=== PATIENT | female | born 1945 | race Caucasian/White ===

== ENCOUNTER → 2017-12-06 12:27 | Outpatient (CLI) | payer MEDICARE, OTHER, SELFPAY ==
--- NOTE | 2017-12-06 12:43 | RAD_ITS ---
STUDY: X-RAY CHEST REASON FOR EXAM: Female, 72 years old. Pre-op TECHNIQUE: Frontal and lateral views of the chest. COMPARISON: None. FINDINGS: The lungs are clear and expanded. Minimal linear scar across the lower right lung. No infiltrates. No effusions. There is no demonstrated pleural abnormality. Normal size heart. Normal mediastinum and smith. Normal visualized pulmonary arteries. Normal visualized aortic arch and descending thoracic aorta. There are diffuse degenerative changes of the visualized thoracic spine. Normal visualized ribs, clavicles, and shoulders. There is no demonstrated abnormality of the visualized soft tissue structures of the upper abdomen. RAD/Chest PA and Lateral IMPRESSION: No acute chest disease. Electronically Signed: Adeel Payne MD at 14:54 EDT , Service support ,
--- NOTE | 2017-12-06 12:53 | EKG12_ITS ---
Test Reason : PREOP Blood Pressure : / mmHG Vent. Rate : 066 BPM Atrial Rate : 066 BPM P-R Int : 188 ms QRS Dur : 076 ms QT Int : 414 ms P-R-T Axes : 043 -27 027 degrees QTc Int : 434 ms Normal sinus rhythm Possible Left atrial enlargement Left ventricular hypertrophy Inferior infarct , age undetermined , cannt be excluded Abnormal ECG Confirmed by PENNIE HEATON, KARTHIK ([id number]), editor city JACOB ROTHMAN ([id number]) on 12/11/2017 3:17:01 PM Referred By: Juan Rothman Confirmed By:KARTHIK CASPER MD
== END ==
PROVIDERS: Visit Provider Orthopaedic Surgery
DX: Z01.810 Encounter for preprocedural cardiovascular examination (principal); Z01.811 Encounter for preprocedural respiratory examination
CPT/HCPCS: 71046; 93005

== ENCOUNTER → 2022-10-17 | Outpatient (CLI) | payer MEDICARE, BC, SELFPAY ==
--- NOTE | 2022-10-17 13:30 | BI_ITS ---
MAMMOGRAPHY - BILATERAL SCREENING REASON FOR EXAM: Female, 77 years old. Routine annual screening examination. PERTINENT HISTORY: Non-contributory. TECHNIQUE: Digital bilateral breast john (3D mammographic acquisition) in the CC and MLO projections. 2-D mediolateral oblique (MLO) and craniocaudad (CC) views of both breasts were obtained. CAD: Full Field Digital Mammography with Computer Added Detection was performed. COMPARISON: No comparison mammograms available at this time. If any prior films become available, an addendum to this report can be generated. FINDINGS: Breast Composition: The breasts are heterogeneously dense, which may obscure small masses. There are no dominant masses or suspicious calcifications. No other significant abnormalities are identified. BI/SCRN MAMM (CAD)W/JOHN BILAT IMPRESSION: Negative screening mammogram. Yearly followup mammogram recommended. (A) ASSESSMENT CATEGORY: BIRADS Category 1: Negative. A letter regarding these results will be sent to the patient by the facility within 30 days. Approximately 10% of breast cancers are not detected by mammography. A normal mammogram should not delay biopsy of a clinically suspicious abnormality. [id number] Electronically Signed: Deric Mtz MD at 14:10 EDT ,
== END | disposition home or self-care (01) ==
LOC: OPBI 13:28
PROVIDERS: PCP Family Medicine Geriatric Medicine; Referring Provider Obstetrics & Gynecology; Visit Provider Obstetrics & Gynecology
DX: Z12.31 Encounter for screening mammogram for malignant neoplasm of breast (principal)
CPT/HCPCS: 77063; 77067

== ENCOUNTER → 2023-06-04 | Outpatient (CLI) | payer MEDICARE, BC, SELFPAY ==
[2023-06-04 17:04] LABS: Absolute Lymphocyte Count 1.62 X10^3/uL (0.83-4.51); Absolute Neutrophil Count 3.3 X10^3/uL (2.0-7.7); Basophil# 0.06 X10^3/uL; Basophil% 1.1 % (0-1); Eosinophil# 0.19 X10^3/uL; Eosinophils% 3.4 % (0-5); Hematocrit 41.1 % (37-47); Hemoglobin 14.1 g/dL (12.0-15.0); Lymphocyte # 1.62 X10^3/ul (0.83-4.51); Lymphocyte % 28.7 % (19-41); Mean Corp Hgb Conc 34.3 g/dL (32-36); Mean Corpuscular Hgb 31.3 pg (27.0-32.0); Mean Corpuscular Volume 91.1 fL (81-99); Mean Platelet Vol. 10.1 fl (6.2-12.0); Monocyte# 0.49 X10^3/uL; Monocyte% 8.7 % (0-10); NRBC Flagged by Analyzer 0 % (0-5); Neutrophil # 3.28 X10^3/uL (2.7-7.7); Neutrophil % 57.9 % (47-70); Platelet Count 192 K/mm3 (150-450); RBC Distribution Width CV 12.6 % (11.6-14.6); Red Blood Count 4.51 M/mm3 (4.2-5.4); White Blood Count 5.7 K/mm3 (4.4-11.0)
[2023-06-04 17:36] LABS: ALB/GLOB Ratio 1.3 RATIO (0.9-2.4); AST(SGOT) 21 U/L (15-37); Alanine Aminotransfer ALT/SGPT 22 U/L (13-56); Albumin, Serum 3.8 g/dL (3.2-5.0); Alkaline Phosphatase 60 U/L (45-117); Anion Gap 4 (5-15); BUN 11 mg/dL (7-18); BUN/Creat Ratio 14.6 RATIO (10-20); Calcium,Total 9.4 mg/dL (8.5-10.1); Chloride 107 mmol/L (98-107); Creatinine, Serum 0.75 mg/dL (0.55-1.02); EST Glomerular Filtration Rate 80 mL/min (>60); Est Glom Filt Rate - Afr Amer 96 mL/min (>60); Glucose 96 mg/dL (74-106); Potassium 3.7 mmol/L (3.5-5.1); Protein, Total 6.8 g/dL (6.4-8.2); Sodium Level 140 mmol/L (136-145); Thyroid Stim Hormone (TSH) 1.67 uIU/mL (0.358-3.74)
[2023-06-04 18:06] LABS: Hepatitis C Antibody Non-Reactive (Nonreactive); Vitamin D,25 Hydroxy 25.7 ng/mL
== END | disposition home or self-care (01) ==
PROVIDERS: PCP Family Medicine Geriatric Medicine; Referring Provider Family Medicine Geriatric Medicine; Visit Provider Family Medicine Geriatric Medicine
DX: E55.9 Vitamin D deficiency, unspecified (principal); R53.83 Other fatigue
CPT/HCPCS: 36415; 80053; 82306; 84443; 85025; 86803

== ENCOUNTER → 2023-09-06 | Outpatient (CLI) | payer MEDICARE, BC, SELFPAY ==
[2023-09-06 12:19] LABS: Absolute Lymphocyte Count 1.72 X10^3/uL (0.83-4.51); Absolute Neutrophil Count 2.4 X10^3/uL (2.0-7.7); Basophil# 0.07 X10^3/uL; Basophil% 1.4 % (0-1); Eosinophil# 0.16 X10^3/uL; Eosinophils% 3.3 % (0-5); Hematocrit 39.1 % (37-47); Hemoglobin 13.5 g/dL (12.0-15.0); Lymphocyte # 1.72 X10^3/ul (0.83-4.51); Lymphocyte % 35.5 % (19-41); Mean Corp Hgb Conc 34.5 g/dL (32-36); Mean Corpuscular Volume 89.9 fL (81-99); Mean Platelet Vol. 10.3 fl (6.2-12.0); Monocyte# 0.41 X10^3/uL; Monocyte% 8.5 % (0-10); NRBC Flagged by Analyzer 0 % (0-5); Neutrophil # 2.44 X10^3/uL (2.7-7.7); Neutrophil % 50.3 % (47-70); Platelet Count 188 K/mm3 (150-450); RBC Distribution Width CV 12.2 % (11.6-14.6); RBC Distribution Width SD 40.4 fl (35.1-43.9); Red Blood Count 4.35 M/mm3 (4.2-5.4); White Blood Count 4.9 K/mm3 (4.4-11.0)
--- OUTSIDE RECORDS SUMMARY | 2023-09-06 12:22 | XMS RPT_ITS | CCD ---
Author Name Unknown Address [id number] [place] [address] Organization [facility] Care Team Providers Care Polymer Chemist Name Role Phone LINA RICHARD DR Unavailable Unavailable LINA IRCHARD DR Unavailable Unavailable LINA RICHARD DR Unavailable Unavailable LINA RICHARD DR Unavailable Unavailable LINA RICHARD DR Unavailable Unavailable LINA RICHARD DR Unavailable Unavailable LINA RICHARD DR Unavailable Unavailable LINA RICHARD DR Unavailable Unavailable LINA RICHARD DR Unavailable Unavailable Unavailable Primary Care Provider Unavailabl e Unavailable Primary Care Provider Unavailabl e Sarah Salazar MD Primary Care Provider Sarah Salazar MD Primary Care Provider [place], Radhika Chi Primary Care Provider [phone] [place], Radhika Chi Primary Care Provider [phone] YUAN, RADHA Attending Unavailable AMERICA, RADHIKA CHI Primary Care Unavailable YUAN, RADHA Referring Unavailable YUAN, RADHA Attending Unavailable AMERICA, RADHIKA CHI Primary Care Unavailable YUAN, RADHA Referring Unavailable YUAN, RADHA Attending Unavailable AMERICA, RADHIKA CHI Primary Care Unavailable YUAN, RADHA Referring Unavailable AMERICA, RADHIKA CHI Primary Care Unavailable YUAN, RADHA Attending Unavailable YUAN, RADHA Referring Unavailable AMERICA, RADHIKA CHI Primary Care Unavailable YUAN, RADHA Attending Unavailable YUAN, RADHA Referring Unavailable AMERICA, RADHIKA CHI Primary Care Unavailable YUAN, RADHA Referring Unavailable YUAN, RADHA Attending Unavailable AMERICA, RADHIKA CHI Primary Care Unavailable YUAN, RADHA Referring Unavailable YUAN, RADHA Attending Unavailable YUAN, RADHA Attending Unavailable AMERICA, RADHIKA CHI Primary Care Unavailable YUAN, RADHA Referring Unavailable YUAN, RADHA Attending Unavailable AMERICA, RADHIKA CHI Primary Care Unavailable YUAN, RADHA Referring Unavailable YUAN, RADHA Attending Unavailable AMERICA, RADHIKA CHI Primary Care Unavailable YUAN, RADHA Referring Unavailable Allergies Allergy Classification Reported Allergen(s) Allergy Type Date of Onset Reaction(s) Facility (2 sources) aspirin; Translations: [ASPIRIN] Drug Allergy 1 [facility] Repository (16 sources) Adhesive agent; Translations: [ADHESIVE] Drug Allergy 8 Other: See Comments [facility] (15 sources) Aspirin Drug Allergy 1 Other: See Comments [facility] (16 sources) Bacitracin; Translations: [BACITRACIN] Drug Allergy 1 Rash, Unknown [facility] (14 sources) bevacizumab; Translations: [BEVACIZUMAB] Drug Allergy 5 Other: See Comments [facility] Work Phone: (14 sources) Seasonal allergy; Translations: [SEASONAL ALLERGIES] Allergy to substance 2 Unknown [facility] Work Phone: Medications Current Medications Medication Drug Class(es) Dates Sig (Normalized) Sig (Original) benoxinate hydrochloride 4 mg/ml / fluorescein sodium 3 mg/ml ophthalmic solution (5 sources) Diagnostic Dye Start: 08-29-2023 End: 08-29-2023 fluorescein-benoxi albert 0.3-0.4 % 1 Drop (FLURESS) Completed/Discontinued Medications Medication Drug Class(es) Dates Sig (Normalized) Sig (Original) acetaminophen with codeine (TYLENOL-CODEINE #3 ORAL) (13 sources) acetaminophen wi th codeine (TYLENOL-CODEINE #3 ORAL) Take by mouth. 0 Active Problems Active Problems Problem Classification Problem Date Documented Date Episodic/Chronic Blindness and vision defects (1 source) Presbyopia; Translations: [Presbyopia] Episodic Cataract (13 sources) Age-related nuclear cataract of right eye; Translations: [Age-related nuclear cataract, right eye] Onset: 01-25-2020 04-23-2022 Chronic Coagulation and hemorrhagic disorders (13 sources) von Willebrand disorder; Translations: [Von Willebrand disease] Onset: 03-20-2011 04-23-2022 Chronic Disorders of lipid metabolism (13 sources) Hyperlipidemia; Translations: [Hyperlipidemia, unspecified] Onset: 11-15-2014 04-23-2022 Chronic Esophageal disorders (13 sources) Gastroesophageal reflux disease without esophagitis; Translations: [Gastro-esophageal reflux disease without esophagitis] Onset: 05-13-2020 04-23-2022 Chronic Medical examination/evaluati on (3 sources) Encounter for other preprocedural examination; Translations: [Encounter for other preprocedural examination] Onset: 01-15-2018 Episodic Osteoarthritis (20 sources) Unilateral primary osteoarthritis, right knee; Translations: [Degenerative joint disease involving multiple joints] Onset: 03-09-2011 04-23-2022 Chronic Other upper respiratory disease (13 sources) Allergic rhinitis; Translations: [Allergic rhinitis, unspecified] Onset: 03-20-2011 04-23-2022 Chronic Retinal detachments; defects; vascular occlusion; and retinopathy (20 sources) Exudative age-related macular degeneration; Translations: [Exudative age-related macular degeneration, bilateral, with active choroidal neovascularization] Onset: 03-20-2011 Chronic Past or Other Problems Problem Classification Problem Date Documented Date Episodic/Chronic Allergic reactions (13 sources) Idiopathic urticaria; Translations: [Idiopathic urticaria] Onset: 11-15-2014 04-23-2022 Episodic Fluid and electrolyte disorders (13 sources) Hypokalemia; Translations: [Hypokalemia] Onset: 09-03-2017 04-23-2022 Episodic Inflammation; infection of eye (except that caused by tuberculosis or sexually transmitteddisease) (13 sources) Acute and subacute iridocyclitis; Translations: [Unspecified acute and subacute iridocyclitis] Onset: 03-09-2011 04-23-2022 Episodic Other and unspecified benign neoplasm (13 sources) Lipoma (clinical); Translations: [Benign lipomatous neoplasm, unspecified] Onset: 11-15-2014 04-23-2022 Episodic Other diseases of kidney and ureters (9 sources) Hydronephrosis; Translations: [Hydronephrosis with renal and ureteral calculous obstruction] Onset: 09-03-2017 04-23-2022 Episodic Other diseases of kidney and ureters (4 sources) Hydronephrosis with renal and ureteral calculous obstruction; Translations: [Hydronephrosis] Onset: 09-03-2017 04-23-2022 Episodic Other diseases of veins and lymphatics (13 sources) Venous insufficiency of leg; Translations: [Venous insufficiency (chronic) (peripheral)] Onset: 05-28-2016 04-23-2022 Episodic Other nervous system disorders (13 sources) Paresthesia; Translations: [Paresthesia of skin] Onset: 04-08-2020 04-23-2022 Episodic Other skin disorders (13 sources) Vesicular eczema; Translations: [Dyshidrosis [pompholyx]] Onset: 11-15-2014 04-23-2022 Episodic Spondylosis; intervertebral disc disorders; other back problems (20 sources) Low back pain; Translations: [Low back pain] Onset: 11-15-2014 04-23-2022 Episodic Results Test Name Value Interpretation Reference Range Facil ity Encounters Encounter Date Encounter Type Care Provider Facility Start: 08-29-2023 End: 08-29-2023 ambulatory [facility] Facility:[facility] Start: 08-29-2023 End: 08-29-2023 Office outpatient visit 15 minutes Radha Frey MD, PhD Work Phone: Ophthalmology Procedures Date Procedure Procedure Detail Performing Clinician Start: 08-29-2023 End: 08-29-2023 Intravitreal njx pharmacologic agt spx Radha Frey MD, PhD Work Phone: Start: 08-29-2023 Computerized ophthal ta imaging retina Rdaha Frey MD, PhD Work Phone: Start: 03-28-2023 End: 03-28-2023 Intravitreal njx pharmacologic agt spx Radha Frey MD, PhD Work Phone: Start: 03-28-2023 Computerized ophthal ta imaging retina Radha Frey MD, PhD Work Phone: Start: 02-21-2023 Intravitreal njx pharmacologic agt spx Radha Frey MD, PhD Work Phone: Start: 02-21-2023 Computerized ophthal ta imaging retina Radha Frey MD, PhD Work Phone: Start: 01-24-2023 End: 01-24-2023 Intravitreal njx pharmacologic agt spx Radha Frey MD, PhD Work Phone: Start: 01-24-2023 Computerized ophthal ta imaging retina Radha Frey MD, PhD Work Phone: Start: 11-22-2022 Intravitreal njx pharmacologic agt spx Radha Frey MD, PhD Work Phone: Start: 11-22-2022 Computerized ophthal ta imaging retina Radha Frey MD, PhD Work Phone: Start: 09-27-2022 End: 09-27-2022 Intravitreal njx pharmacologic agt spx Radha Frey MD, PhD Work Phone: Start: 09-27-2022 Computerized ophthal ta imaging retina Radha Frey MD, PhD Work Phone: Start: 08-23-2022 End: 08-23-2022 Intravitreal njx pharmacologic agt spx Radha Frey MD, PhD Work Phone: Start: 08-23-2022 Computerized ophthal ta imaging retina Radha Frey MD, PhD Work Phone: Start: 07-26-2022 End: 07-26-2022 Intravitreal njx pharmacologic agt spx Radha Frey MD, PhD Work Phone: Start: 07-26-2022 Computerized ophthal ta imaging retina Radha Frey MD, PhD Work Phone: Start: 06-28-2022 End: 06-28-2022 Intravitreal njx pharmacologic agt spx Radha Frey MD, PhD Work Phone: Start: 06-28-2022 Computerized ophthal ta imaging retina Radha Frey MD, PhD Work Phone: Start: 06-07-2022 End: 06-07-2022 Intravitreal njx pharmacologic agt spx Radha Frey MD, PhD Work Phone: Start: 06-07-2022 Computerized ophthal ta imaging retina Radha Frey MD, PhD Work Phone: Start: 05-18-2022 End: 05-18-2022 Intravitreal njx pharmacologic agt spx Radha Frey MD, PhD Work Phone: Start: 05-18-2022 Computerized ophthal ta imaging retina Radha Frey MD, PhD Work Phone: Start: 04-19-2022 End: 04-19-2022 Intravitreal njx pharmacologic agt spx Radha Frey MD, PhD Work Phone: Start: 04-19-2022 Computerized ophthal ta imaging retina Radha Frey MD, PhD Work Phone: Start: 03-08-2022 End: 03-08-2022 Intravitreal njx pharmacologic agt spx Radha Frey MD, PhD Work Phone: Start: 03-08-2022 Computerized ophthal ta imaging retina Radha Frey MD, PhD Work Phone: Plan of Treatment Date Care Activity Detail Author Start: 08-19-2025 LIPID SCREEN LIPID SCREEN [facility] Start: 04-23-2025 DIABETES SCREEN DIABETES SCREEN [facility] Start: 04-23-2025 Diabetes Screening Diabetes Screening [facility] Start: 09-12-2024 End: 02-19-2025 OCT MACULA CIRRUS OU (BOTH EYES) OCT MACULA CIRRUS OU (BOTH EYES) OPHT Imaging Routine Exudative age-related macular degeneration, bilateral, with active choroidal neovascularization (HCC) Expected: 09/12/2024, Expires: 02/19/2025 [facility] Work Phone: Immunizations Immunization Date Immunization Notes Care Provider Fa radha 09-07-2020 COVID-19 original vaccine, age 12+ yr, monovalent (PFIZER-BIONTECH - PURPLE TOP) Mary Hurst OD Work Phone: [facility] Work Phone: 08-17-2020 COVID-19 original vaccine, age 12+ yr, monovalent (PFIZER-BIONTECH - PURPLE TOP) Mary Hurst OD Work Phone: [facility] Work Phone: 01-04-2017 pneumococcal conjuga te vaccine, 13 valent Mary Hurst OD Work Phone: [facility] Work Phone: 06-24-2015 zoster vaccine, live Mary Hurst OD Work Phone: [facility] Work Phone: Payers Date Payer Category Payer Medicare [id number] B 2019 Unknown MARY SIDDIQUI DICARE SUPPLEMENT [id number] 2019-Present [phone] [id number] [place] [address] Indemnity [id number] 2011 Medicare [id number] 2011 Medicare MEDICARE MEDICAR E A AND B [id number] 2011-Present [phone] [place] [address] Medicare [id number] Social History Date Type Detail Facility Start: 03-08-2022 End: 04-23-2022 Tobacco smoking status NHIS Ex-smoker [facility] End: 06-24-2006 History of tobacco use Current smoker [facility] End: 06-24-2006 History of tobacco use Cigarette Smoker [facility] Start: 03-08-2022 End: 04-23-2022 Tobacco use and exposure Smokeless tobacco non-user [facility] Start: 1945 Sex Assigned At Not on file [facility] Start: 02-26-2022 End: 04-23-2022 Exposure to SARS-CoV-2 (event) Not sure [facility] Start: 04-23-2022 End: 10-25-2022 Cigarettes smoked current (pack per day) - Reported 1.5 [facility] Work Phone: Start: 05-10-2022 End: 08-29-2023 Alcohol intake Current drinker of alcohol (finding) [facility] Start: 04-23-2022 [facility] Start: 10-25-2022 End: 12-20-2022 Tobacco use panel [facility] Work Phone: Adult Depression Screening Assessment 0 [facility] Work Phone: Clinical Notes 03-08-2022 to 08-29-2023 Patient Radha Iglesias MD, PhD - 08/29/2023 8:49 AM ESTPatient Radha Iglesias MD, PhD - 03/28/2023 8:09 AM EDTPatient Radha Iglesias MD, PhD - 02/21/2023 8:03 AM EDT Note Date & Type Note Facility 08-29-2023 Note HNO ID: [id number] Author: RADHA FREY MD, PhD Service: ? Author Type: Physician Type: Progress Notes Filed: 08/29/2023 09:18 Note Text: Patient has been receiving intravitreal injections for AMd both eyes for ~ 10 years Was well controlled on Eylea both eyes until recently left eye required more frequent administration. 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 I have seen and examined this patient. I have discussed the case and the management of this patient's care with the Resident/Fellow, if applicable. I also have reviewed and agree with the assessment and plan as stated above and agree with all of its relevant components. Radha Frey MD [facility] 08-29-2023 Instructions Radha Frey MD, PhD - 08/29/2023 9:18 AM EST Post Injection Patient Information You had eye injection(s) today. These are your after injection instructions. Today: Preservative free artificial tears 1 drop every hour while awake as needed Tomorrow: Preservative free artificial tears 1 drop every 2 hours while awake as needed Care instructions after eye injections: Do not rub or touch your eye other than dabbing lightly with a tissue An hffo-omy-ifbptou pain reliever (i.e. Tylenol) can be used for mild soreness Use artificial tears/lubricating drops once an hour as needed for comfort (chill the tears in the refrigerator for more comfort). If you are using the tears more than 4 times a day they need to be the preservative free kind Warm or cool compresses are okay It is okay to shower and wash your face. No swimming pools or saunas for 24 hours COMMON symptoms after successful eye injections: Mild to moderate pain or irritation beginning the day of the injection. This should begin to improve the following day. Eyelash in the eye or emperatriz/gritty sensation Tearing Mild floaters or bubbles in your vision - usually resolves after 1-2 days Bloody tears for 1-2 days after treatment Eye Redness Also known as subconjunctival hemorrhage This bruise can cover the entire white part of the eye and may last a few weeks CONCERNING symptoms after eye injections: Severe, constant pain Worsening pain after the first day Decreased vision Severe, constant floaters Curtain or veil in your vision New eye redness that was not there after the injection and covers the whole eye Please call the office immediately for any of the above listed concerning symptoms or with any other questions. If it is after hours please call [phone] which will give instructions on how to reach the eye doctor retail loss prevention specialist documented in this encounter [facility] 08-29-2023 History of Present illness Narrative Patient has been receiving intravitreal injections for AMd both eyes for ~ 10 years Was well controlled on Eylea both eyes until recently left eye required more frequent administration. 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 I have seen and examined this patient. I have discussed the case and the management of this patient's care with the Resident/Fellow, if applicable. I also have reviewed and agree with the assessment and plan as stated above and agree with all of its relevant components. Radha Frey MD documented in this encounter [facility] 05-30-2023 Note HNO ID: [id number] Author: Radha Frey MD, PhD Service: ? Author Type: Physician Type: Progress Notes Filed: 05/30/2023 8:45 AM Note Text: Patient has been receiving intravitreal injections for AMd both eyes for ~ 10 years Was well controlled on Eylea both eyes until recently left eye required more frequent administration. 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 Posterior chamber intraocular lens (PCIOL) both eyes with mild posterior capsular opacity (PCO) both eyes Plan: Right eye s/p vabysmo, fluid returns at 8 wks Left eye tolerates up to 5 wks S/p vabysmo both eyes 4 weeks ago with no fluid right eye, IRF OS Vabysmo today both eyes Full exam in September Patient is not interested in RGX Has appointment 1st week in Jun in [place] with local retina Leaving mid may to jul Has August 28 appointment for when she returns I have confirmed and edited as necessary the relevant ophthalmic history, ROS, and the neuro exam findings as obtained by others. I have seen and examined this patient. I have discussed the case and the management of this patient's care with the Resident/Fellow, if applicable. I also have reviewed and agree with the assessment and plan as stated above and agree with all of its relevant components. Radha Frey MD [facility] 04-25-2023 Note HNO ID: [id number] Author: Radha Frey MD, PhD Service: ? Author Type: Physician Type: Progress Notes Filed: 04/25/2023 8:42 AM Note Text: Patient has been receiving intravitreal injections for AMd both eyes for ~ 10 years Was well controlled on Eylea both eyes until recently left eye required more frequent administration. 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 Posterior chamber intraocular lens (PCIOL) both eyes with mild posterior capsular opacity (PCO) both eyes Plan: Right eye s/p vabysmo, fluid returns at 8 wks Left eye s/p vabysmo 5 wks with persistent fluid - but stable S/p vabysmo both eyes 4 weeks ago with no fluid right eye Return in 4-5 weeks for sti Full exam in September Schedule appointments to May Patient is not interested in RGX 05/30/23 next appointment scheduled here Has appointment 1st week in Jun in [place] with local retina Leaving mid may to jul Next visit make appointment for mid August I have confirmed and edited as necessary the relevant ophthalmic history, ROS, and the neuro exam findings as obtained by others. I have seen and examined this patient. I have discussed the case and the management of this patient's care with the Resident/Fellow, if applicable. I also have reviewed and agree with the assessment and plan as stated above and agree with all of its relevant components. Radha Frey MD [facility] 03-28-2023 Note HNO ID: [id number] Author: Radha Frey MD, PhD Service: ? Author Type: Physician Type: Progress Notes Filed: 03/28/2023 8:23 AM Note Text: Patient has been receiving intravitreal injections for AMd both eyes for ~ 10 years Was well controlled on Eylea both eyes until recently left eye required more frequent administration. 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 Posterior chamber intraocular lens (PCIOL) both eyes with mild posterior capsular opacity (PCO) both eyes Plan: Right eye s/p vabysmo, fluid returns at 8 wks Left eye s/p vabysmo 5 wks with persistent fluid - but stable S/p vabysmo right eye 9 weeks ago - with worse subretinal fluid and drop in vision S/p vabysmo left eye 5 weeks ago - no fluid Return in 4-5 weeks for sti Full exam in September Schedule appointments to Dec Patient is not interested in RGX Leaving mid may to mid jul, will see retina doc there I have confirmed and edited as necessary the relevant ophthalmic history, ROS, and the neuro exam findings as obtained by others. I have seen and examined this patient. I have discussed the case and the management of this patient's care with the Resident/Fellow, if applicable. I also have reviewed and agree with the assessment and plan as stated above and agree with all of its relevant components. Radha Frey MD [facility] 03-28-2023 Instructions Radha Frey MD, PhD - 03/28/2023 8:22 AM EDT Post Injection Patient Information You had eye injection(s) today. These are your after injection instructions. Today: Preservative free artificial tears 1 drop every hour while awake as needed Tomorrow: Preservative free artificial tears 1 drop every 2 hours while awake as needed Care instructions after eye injections: Do not rub or touch your eye other than dabbing lightly with a tissue An feeo-fls-lunnted pain reliever (i.e. Tylenol) can be used for mild soreness Use artificial tears/lubricating drops once an hour as needed for comfort (chill the tears in the refrigerator for more comfort). If you are using the tears more than 4 times a day they need to be the preservative free kind Warm or cool compresses are okay It is okay to shower and wash your face. No swimming pools or saunas for 24 hours COMMON symptoms after successful eye injections: Mild to moderate pain or irritation beginning the day of the injection. This should begin to improve the following day. Eyelash in the eye or emperatriz/gritty sensation Tearing Mild floaters or bubbles in your vision - usually resolves after 1-2 days Bloody tears for 1-2 days after treatment Eye Redness Also known as subconjunctival hemorrhage This bruise can cover the entire white part of the eye and may last a few weeks CONCERNING symptoms after eye injections: Severe, constant pain Worsening pain after the first day Decreased vision Severe, constant floaters Curtain or veil in your vision New eye redness that was not there after the injection and covers the whole eye Please call the office immediately for any of the above listed concerning symptoms or with any other questions. If it is after hours please call [phone] which will give instructions on how to reach the eye doctor retail loss prevention specialist documented in this encounter [facility] 03-28-2023 History of Present illness Narrative Patient has been receiving intravitreal injections for AMd both eyes for ~ 10 years Was well controlled on Eylea both eyes until recently left eye required more frequent administration. 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 Posterior chamber intraocular lens (PCIOL) both eyes with mild posterior capsular opacity (PCO) both eyes Plan: Right eye s/p vabysmo, fluid returns at 8 wks Left eye s/p vabysmo 5 wks with persistent fluid - but stable S/p vabysmo right eye 9 weeks ago - with worse subretinal fluid and drop in vision S/p vabysmo left eye 5 weeks ago - no fluid Return in 4-5 weeks for sti Full exam in September Schedule appointments to Dec Patient is not interested in RGX Leaving mid may to mid jul, will see retina doc there I have confirmed and edited as necessary the relevant ophthalmic history, ROS, and the neuro exam findings as obtained by others. I have seen and examined this patient. I have discussed the case and the management of this patient's care with the Resident/Fellow, if applicable. I also have reviewed and agree with the assessment and plan as stated above and agree with all of its relevant components. Radha Frey MD documented in this encounter [facility] 02-21-2023 Note HNO ID: [id number] Author: Radha Frey MD, PhD Service: ? Author Type: Physician Type: Progress Notes Filed: 02/21/2023 8:15 AM Note Text: Patient has been receiving intravitreal injections for AMd both eyes for ~ 10 years Was well controlled on Eylea both eyes until recently left eye required more frequent administration. 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 Posterior chamber intraocular lens (PCIOL) both eyes with mild posterior capsular opacity (PCO) both eyes Plan: Right eye s/p vabysmo, fluid returns at 8 wks Left eye s/p vabysmo 4 wks with persistent fluid S/p vabysmo both eyes 4 weeks with no fluid right eye and IRF OS Rec vabysmo OS Return in 4-5 weeks for full exam Schedule appointments to Dec Patient is not interested in RGX Leaving mid may to mid jul, will see retina doc there I have confirmed and edited as necessary the relevant ophthalmic history, ROS, and the neuro exam findings as obtained by others. I have seen and examined this patient. I have discussed the case and the management of this patient's care with the Resident/Fellow, if applicable. I also have reviewed and agree with the assessment and plan as stated above and agree with all of its relevant components. Radha Frey MD [facility] 02-21-2023 Instructions Radha Frey MD, PhD - 02/21/2023 8:15 AM EDT Post Injection Patient Information You had eye injection(s) today. These are your after injection instructions. Today: Preservative free artificial tears 1 drop every hour while awake as needed Tomorrow: Preservative free artificial tears 1 drop every 2 hours while awake as needed Care instructions after eye injections: Do not rub or touch your eye other than dabbing lightly with a tissue An bujn-cmr-jgalecx pain reliever (i.e. Tylenol) can be used for mild soreness Use artificial tears/lubricating drops once an hour as needed for comfort (chill the tears in the refrigerator for more comfort). If you are using the tears more than 4 times a day they need to be the preservative free kind Warm or cool compresses are okay It is okay to shower and wash your face. No swimming pools or saunas for 24 hours COMMON symptoms after successful eye injections: Mild to moderate pain or irritation beginning the day of the injection. This should begin to improve the following day. Eyelash in the eye or emperatriz/gritty sensation Tearing Mild floaters or bubbles in your vision - usually resolves after 1-2 days Bloody tears for 1-2 days after treatment Eye Redness Also known as subconjunctival hemorrhage This bruise can cover the entire white part of the eye and may last a few weeks CONCERNING symptoms after eye injections: Severe, constant pain Worsening pain after the first day Decreased vision Severe, constant floaters Curtain or veil in your vision New eye redness that was not there after the injection and covers the whole eye Please call the office immediately for any of the above listed concerning symptoms or with any other questions. If it is after hours please call [phone] which will give instructions on how to reach the eye doctor retail loss prevention specialist documented in this encounter [facility] 02-21-2023 History of Present illness Narrative Patient has been receiving intravitreal injections for AMd both eyes for ~ 10 years Was well controlled on Eylea both eyes until recently left eye required more frequent administration. 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 Posterior chamber intraocular lens (PCIOL) both eyes with mild posterior capsular opacity (PCO) both eyes Plan: Right eye s/p vabysmo, fluid returns at 8 wks Left eye s/p vabysmo 4 wks with persistent fluid S/p vabysmo both eyes 4 weeks with no fluid right eye and IRF OS Rec vabysmo OS Return in 4-5 weeks for full exam Schedule appointments to Dec Patient is not interested in RGX Leaving mid may to mid jul, will see retina doc there I have confirmed and edited as necessary the relevant ophthalmic history, ROS, and the neuro exam findings as obtained by others. I have seen and examined this patient. I have discussed the case and the management of this patient's care with the Resident/Fellow, if applicable. I also have reviewed and agree with the assessment and plan as stated above and agree with all of its relevant components. Radha Frey MD documented in this encounter [facility] 01-24-2023 Note HNO ID: [id number] Author: Radha Frey MD, PhD Service: ? Author Type: Physician Type: Progress Notes Filed: 01/24/2023 8:23 AM Note Text: Patient has been receiving intravitreal injections for AMd both eyes for ~ 10 years Was well controlled on Eylea both eyes until recently left eye required more frequent administration. 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 Posterior chamber intraocular lens (PCIOL) both eyes with mild posterior capsular opacity (PCO) both eyes Plan: Right eye s/p vabysmo 8 wks with increased subretinal fluid Left eye s/p vabysmo 4 wks with increased IRF Rec vabysmo both eyes today Return in 4-5 weeks for vabysmo likely left eye Full exam in February Patient is not interested in RGX I have confirmed and edited as necessary the relevant ophthalmic history, ROS, and the neuro exam findings as obtained by others. I have seen and examined this patient. I have discussed the case and the management of this patient's care with the Resident/Fellow, if applicable. I also have reviewed and agree with the assessment and plan as stated above and agree with all of its relevant components. Radha Frey MD [facility] 01-24-2023 Instructions Radha Frey MD, PhD - 01/24/2023 8:21 AM EDT Post Injection Patient Information You had eye injection(s) today. These are your after injection instructions. Today: Preservative free artificial tears 1 drop every hour while awake as needed Tomorrow: Preservative free artificial tears 1 drop every 2 hours while awake as needed Care instructions after eye injections: Do not rub or touch your eye other than dabbing lightly with a tissue An fyyv-yun-rrvcege pain reliever (i.e. Tylenol) can be used for mild soreness Use artificial tears/lubricating drops once an hour as needed for comfort (chill the tears in the refrigerator for more comfort). If you are using the tears more than 4 times a day they need to be the preservative free kind Warm or cool compresses are okay It is okay to shower and wash your face. No swimming pools or saunas for 24 hours COMMON symptoms after successful eye injections: Mild to moderate pain or irritation beginning the day of the injection. This should begin to improve the following day. Eyelash in the eye or emperatriz/gritty sensation Tearing Mild floaters or bubbles in your vision - usually resolves after 1-2 days Bloody tears for 1-2 days after treatment Eye Redness Also known as subconjunctival hemorrhage This bruise can cover the entire white part of the eye and may last a few weeks CONCERNING symptoms after eye injections: Severe, constant pain Worsening pain after the first day Decreased vision Severe, constant floaters Curtain or veil in your vision New eye redness that was not there after the injection and covers the whole eye Please call the office immediately for any of the above listed concerning symptoms or with any other questions. If it is after hours please call [phone] which will give instructions on how to reach the eye doctor retail loss prevention specialist documented in this encounter [facility] 01-24-2023 History of Present illness Narrative Patient has been receiving intravitreal injections for AMd both eyes for ~ 10 years Was well controlled on Eylea both eyes until recently left eye required more frequent administration. 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 Posterior chamber intraocular lens (PCIOL) both eyes with mild posterior capsular opacity (PCO) both eyes Plan: Right eye s/p vabysmo 8 wks with increased subretinal fluid Left eye s/p vabysmo 4 wks with increased IRF Rec vabysmo both eyes today Return in 4-5 weeks for vabysmo likely left eye Full exam in February Patient is not interested in RGX I have confirmed and edited as necessary the relevant ophthalmic history, ROS, and the neuro exam findings as obtained by others. I have seen and examined this patient. I have discussed the case and the management of this patient's care with the Resident/Fellow, if applicable. I also have reviewed and agree with the assessment and plan as stated above and agree with all of its relevant components. Radha Frey MD documented in this encounter [facility] 12-20-2022 Note HNO ID: [id number] Author: Radha Frey MD, PhD Service: ? Author Type: Physician Type: Progress Notes Filed: 12/20/2022 8:22 AM Note Text: Patient has been receiving intravitreal injections for AMd both eyes for ~ 10 years Was well controlled on Eylea both eyes until recently left eye required more frequent administration. 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 Posterior chamber intraocular lens (PCIOL) both eyes with mild posterior capsular opacity (PCO) both eyes Plan: Right eye s/p vabysmo 8 wks with increased subretinal fluid Left eye s/p vabysmo 4 wks with increased IRF Rec vabysmo both eyes today Return in 4-5 weeks for vabysmo likely left eye Full exam in February Patient is not interested in RGX I have confirmed and edited as necessary the relevant ophthalmic history, ROS, and the neuro exam findings as obtained by others. I have seen and examined this patient. I have discussed the case and the management of this patient's care with the Resident/Fellow, if applicable. I also have reviewed and agree with the assessment and plan as stated above and agree with all of its relevant components. Radha Frey MD [facility] 11-22-2022 Note HNO ID: [id number] Author: Radha Frey MD, PhD Service: ? Author Type: Physician Type: Progress Notes Filed: 11/22/2022 8:24 AM Note Text: Patient has been receiving intravitreal injections for AMd both eyes for ~ 10 years Was well controlled on Eylea both eyes until recently left eye required more frequent administration. 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 Posterior chamber intraocular lens (PCIOL) both eyes with mild posterior capsular opacity (PCO) both eyes Plan: Vabysmo both eyes 4 weeks ago with no fluid right eye, IRF OS Rec vabysmo left eye, right eye is 20/20 and dry Return in 4-5 weeks for vabysmo possibly both eyes sti Full exam in February Patient is not interested in RGX I have confirmed and edited as necessary the relevant ophthalmic history, ROS, and the neuro exam findings as obtained by others. I have seen and examined this patient. I have discussed the case and the management of this patient's care with the Resident/Fellow, if applicable. I also have reviewed and agree with the assessment and plan as stated above and agree with all of its relevant components. Radha Frey MD [facility] 11-22-2022 Instructions Radha Frey MD, PhD - 11/22/2022 8:23 AM EDT Post Injection Patient Information You had eye injection(s) today. These are your after injection instructions. Today: Preservative free artificial tears 1 drop every hour while awake as needed Tomorrow: Preservative free artificial tears 1 drop every 2 hours while awake as needed Care instructions after eye injections: Do not rub or touch your eye other than dabbing lightly with a tissue An suyp-noy-mulekld pain reliever (i.e. Tylenol) can be used for mild soreness Use artificial tears/lubricating drops once an hour as needed for comfort (chill the tears in the refrigerator for more comfort). If you are using the tears more than 4 times a day they need to be the preservative free kind Warm or cool compresses are okay It is okay to shower and wash your face. No swimming pools or saunas for 24 hours COMMON symptoms after successful eye injections: Mild to moderate pain or irritation beginning the day of the injection. This should begin to improve the following day. Eyelash in the eye or emperatriz/gritty sensation Tearing Mild floaters or bubbles in your vision - usually resolves after 1-2 days Bloody tears for 1-2 days after treatment Eye Redness Also known as subconjunctival hemorrhage This bruise can cover the entire white part of the eye and may last a few weeks CONCERNING symptoms after eye injections: Severe, constant pain Worsening pain after the first day Decreased vision Severe, constant floaters Curtain or veil in your vision New eye redness that was not there after the injection and covers the whole eye Please call the office immediately for any of the above listed concerning symptoms or with any other questions. If it is after hours please call [phone] which will give instructions on how to reach the eye doctor retail loss prevention specialist documented in this encounter [facility] 11-22-2022 History of Present illness Narrative Patient has been receiving intravitreal injections for AMd both eyes for ~ 10 years Was well controlled on Eylea both eyes until recently left eye required more frequent administration. 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 Posterior chamber intraocular lens (PCIOL) both eyes with mild posterior capsular opacity (PCO) both eyes Plan: Vabysmo both eyes 4 weeks ago with no fluid right eye, IRF OS Rec vabysmo left eye, right eye is 20/20 and dry Return in 4-5 weeks for vabysmo possibly both eyes sti Full exam in February Patient is not interested in RGX I have confirmed and edited as necessary the relevant ophthalmic history, ROS, and the neuro exam findings as obtained by others. I have seen and examined this patient. I have discussed the case and the management of this patient's care with the Resident/Fellow, if applicable. I also have reviewed and agree with the assessment and plan as stated above and agree with all of its relevant components. Radha Frey MD documented in this encounter [facility] 10-25-2022 Note HNO ID: [id number] Author: Radha Frey MD, PhD Service: ? Author Type: Physician Type: Progress Notes Filed: 10/25/2022 8:20 AM Note Text: Patient has been receiving intravitreal injections for AMd both eyes for ~ 10 years Was well controlled on Eylea both eyes until recently left eye required more frequent administration. 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 Posterior chamber intraocular lens (PCIOL) both eyes with mild posterior capsular opacity (PCO) both eyes Plan: Vabysmo both eyes 4 weeks ago with improved IRF OU Rec vabysmo OU Return in 4-5 weeks for vabysmo both eyes sti Full exam in February Patient is not interested in RGX I have confirmed and edited as necessary the relevant ophthalmic history, ROS, and the neuro exam findings as obtained by others. I have seen and examined this patient. I have discussed the case and the management of this patient's care with the Resident/Fellow, if applicable. I also have reviewed and agree with the assessment and plan as stated above and agree with all of its relevant components. Radha Frey MD [facility] 09-27-2022 Note HNO ID: [id number] Author: Radha Frey MD, PhD Service: ? Author Type: Physician Type: Progress Notes Filed: 09/27/2022 8:25 AM Note Text: Patient has been receiving intravitreal injections for AMd both eyes for ~ 10 years Was well controlled on Eylea both eyes until recently left eye required more frequent administration. 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 Posterior chamber intraocular lens (PCIOL) both eyes with mild posterior capsular opacity (PCO) both eyes Plan: Vabysmo both eyes 5 weeks ago with trace fluid right eye, stable IRF left eye Rec vabysmo OU Return in 4-5 weeks for vabysmo both eyes sti Full exam in February Discussed RGX [facility], will give consent (for atmosphere) Patient is not interested I have confirmed and edited as necessary the relevant ophthalmic history, ROS, and the neuro exam findings as obtained by others. I have seen and examined this patient. I have discussed the case and the management of this patient's care with the Resident/Fellow, if applicable. I also have reviewed and agree with the assessment and plan as stated above and agree with all of its relevant components. Radha Frey MD [facility] 09-27-2022 Instructions Radha Frey MD, PhD - 09/27/2022 8:25 AM EDT Post Injection Patient Information You had eye injection(s) today. These are your after injection instructions. Today: Preservative free artificial tears 1 drop every hour while awake as needed Tomorrow: Preservative free artificial tears 1 drop every 2 hours while awake as needed Care instructions after eye injections: Do not rub or touch your eye other than dabbing lightly with a tissue An jbca-hrt-wfnzheq pain reliever (i.e. Tylenol) can be used for mild soreness Use artificial tears/lubricating drops once an hour as needed for comfort (chill the tears in the refrigerator for more comfort). If you are using the tears more than 4 times a day they need to be the preservative free kind Warm or cool compresses are okay It is okay to shower and wash your face. No swimming pools or saunas for 24 hours COMMON symptoms after successful eye injections: Mild to moderate pain or irritation beginning the day of the injection. This should begin to improve the following day. Eyelash in the eye or emperatriz/gritty sensation Tearing Mild floaters or bubbles in your vision - usually resolves after 1-2 days Bloody tears for 1-2 days after treatment Eye Redness Also known as subconjunctival hemorrhage This bruise can cover the entire white part of the eye and may last a few weeks CONCERNING symptoms after eye injections: Severe, constant pain Worsening pain after the first day Decreased vision Severe, constant floaters Curtain or veil in your vision New eye redness that was not there after the injection and covers the whole eye Please call the office immediately for any of the above listed concerning symptoms or with any other questions. If it is after hours please call [phone] which will give instructions on how to reach the eye doctor retail loss prevention specialist documented in this encounter [facility] 09-27-2022 History of Present illness Narrative Patient has been receiving intravitreal injections for AMd both eyes for ~ 10 years Was well controlled on Eylea both eyes until recently left eye required more frequent administration. 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 Posterior chamber intraocular lens (PCIOL) both eyes with mild posterior capsular opacity (PCO) both eyes Plan: Vabysmo both eyes 5 weeks ago with trace fluid right eye, stable IRF left eye Rec vabysmo OU Return in 4-5 weeks for vabysmo both eyes sti Full exam in February Discussed RGX [facility], will give consent (for atmosphere) Patient is not interested I have confirmed and edited as necessary the relevant ophthalmic history, ROS, and the neuro exam findings as obtained by others. I have seen and examined this patient. I have discussed the case and the management of this patient's care with the Resident/Fellow, if applicable. I also have reviewed and agree with the assessment and plan as stated above and agree with all of its relevant components. Radha Frey MD documented in this encounter [facility] 09-12-2022 Miscellaneous Notes IRB: [id number] Title: [facility] A Randomized, Partially Masked, Controlled, Phase 3 Clinical Study to Evaluate the Efficacy and Safety of [id number] Gene Therapy in Participants with nAMD. Spoke with patient at the request of Dr. Frey on 12 SEP 2022 A brief overview of the above trial was provided to the patient including primary goals, risks/side effects, and treatment plan. Patient interested in study and would like ICF mailed to home when it is available. Patient has concerns regarding allergy to bacitracin for after eye surgery. 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 Concerns will be discussed with Dr. Frey and Mary Kate (PI) to determine if patient would be eligible. Ashia Barnes- Research Coordinator 12 SEP 2022 Ashia Barnes- Research 12 SEP 2022 documented in this encounter [facility] 08-23-2022 Instructions Radha Frey MD, PhD - 08/23/2022 10:03 AM EST Post Injection Patient Information You had eye injection(s) today. These are your after injection instructions. Today: Preservative free artificial tears 1 drop every hour while awake as needed Tomorrow: Preservative free artificial tears 1 drop every 2 hours while awake as needed Care instructions after eye injections: Do not rub or touch your eye other than dabbing lightly with a tissue An xbtt-ckk-rgmhnwg pain reliever (i.e. Tylenol) can be used for mild soreness Use artificial tears/lubricating drops once an hour as needed for comfort (chill the tears in the refrigerator for more comfort). If you are using the tears more than 4 times a day they need to be the preservative free kind Warm or cool compresses are okay It is okay to shower and wash your face. No swimming pools or saunas for 24 hours COMMON symptoms after successful eye injections: Mild to moderate pain or irritation beginning the day of the injection. This should begin to improve the following day. Eyelash in the eye or emperatriz/gritty sensation Tearing Mild floaters or bubbles in your vision - usually resolves after 1-2 days Bloody tears for 1-2 days after treatment Eye Redness Also known as subconjunctival hemorrhage This bruise can cover the entire white part of the eye and may last a few weeks CONCERNING symptoms after eye injections: Severe, constant pain Worsening pain after the first day Decreased vision Severe, constant floaters Curtain or veil in your vision New eye redness that was not there after the injection and covers the whole eye Please call the office immediately for any of the above listed concerning symptoms or with any other questions. If it is after hours please call [phone] which will give instructions on how to reach the eye doctor retail loss prevention specialist documented in this encounter [facility] 08-23-2022 History of Present illness Narrative Patient has been receiving intravitreal injections for AMd both eyes for ~ 10 years Was well controlled on Eylea both eyes until recently left eye required more frequent administration. 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 I have seen and examined this patient. I have discussed the case and the management of this patient's care with the Resident/Fellow, if applicable. I also have reviewed and agree with the assessment and plan as stated above and agree with all of its relevant components. Radha Frey MD documented in this encounter [facility] 07-26-2022 Instructions Radha Frey MD, PhD - 07/26/2022 8:20 AM EST Post-Injection Patient Information You had an injection into the eye today. Tearing and some redness are common after an eye injection. If the eye feels irritated, try to keep it closed; some patients find that a mild pain medicine such as acetaminophen helps. If tearing or pain persists the next day, please call. The redness may take some days to a week to resolve. If you notice increasing pain, redness or blurred vision, please call the office. Loss of central or peripheral vision should prompt a call to us. Please call if you have any questions or concerns. For Questions or an Appointment, please call: [phone] [email or web address]. documented in this encounter [facility] 07-26-2022 History of Present illness Narrative Patient has been receiving intravitreal injections for AMd both eyes for ~ 10 years Was well controlled on Eylea both eyes until recently left eye required more frequent administration. 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 I have seen and examined this patient. I have discussed the case and the management of this patient's care with the Resident/Fellow, if applicable. I also have reviewed and agree with the assessment and plan as stated above and agree with all of its relevant components. Radha Frey MD documented in this encounter [facility] 06-28-2022 Instructions Radha Frey MD, PhD - 06/28/2022 9:08 AM EST Post-Injection Patient Information You had an injection into the eye today. Tearing and some redness are common after an eye injection. If the eye feels irritated, try to keep it closed; some patients find that a mild pain medicine such as acetaminophen helps. If tearing or pain persists the next day, please call. The redness may take some days to a week to resolve. If you notice increasing pain, redness or blurred vision, please call the office. Loss of central or peripheral vision should prompt a call to us. Please call if you have any questions or concerns. For Questions or an Appointment, please call: [phone] Visit us online at [email or web address]. documented in this encounter [facility] 06-28-2022 History of Present illness Narrative Patient has been receiving intravitreal injections for AMd both eyes for ~ 10 years Was well controlled on Eylea both eyes until recently left eye required more frequent administration. 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 I have seen and examined this patient. I have discussed the case and the management of this patient's care with the Resident/Fellow, if applicable. I also have reviewed and agree with the assessment and plan as stated above and agree with all of its relevant components. Radha Frey MD documented in this encounter [facility] 06-07-2022 Instructions Radha Frey MD, PhD - 06/07/2022 9:49 AM EST Post-Injection Patient Information You had an injection into the eye today. Tearing and some redness are common after an eye injection. If the eye feels irritated, try to keep it closed; some patients find that a mild pain medicine such as acetaminophen helps. If tearing or pain persists the next day, please call. The redness may take some days to a week to resolve. If you notice increasing pain, redness or blurred vision, please call the office. Loss of central or peripheral vision should prompt a call to us. Please call if you have any questions or concerns. For Questions or an Appointment, please call: [phone] Visit us online at [email or web address]. documented in this encounter [facility] 06-07-2022 History of Present illness Narrative Patient has been receiving intravitreal injections for AMd both eyes for ~ 10 years Was well controlled on Eylea both eyes until recently left eye required more frequent administration. 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 I have seen and examined this patient. I have discussed the case and the management of this patient's care with the Resident/Fellow, if applicable. I also have reviewed and agree with the assessment and plan as stated above and agree with all of its relevant components. Radha Frey MD documented in this encounter [facility] 05-18-2022 Instructions Radha Frey MD, PhD - 05/18/2022 8:51 AM EST Post-Injection Patient Information You had an injection into the eye today. Tearing and some redness are common after an eye injection. If the eye feels irritated, try to keep it closed; some patients find that a mild pain medicine such as acetaminophen helps. If tearing or pain persists the next day, please call. The redness may take some days to a week to resolve. If you notice increasing pain, redness or blurred vision, please call the office. Loss of central or peripheral vision should prompt a call to us. Please call if you have any questions or concerns. For Questions or an Appointment, please call: [phone] Visit us online at [email or web address]. documented in this encounter [facility] 05-18-2022 History of Present illness Narrative Patient has been receiving intravitreal injections for AMd both eyes for ~ 10 years Was well controlled on Eylea both eyes until recently left eye required more frequent administration. 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 I have seen and examined this patient. I have discussed the case and the management of this patient's care with the Resident/Fellow, if applicable. I also have reviewed and agree with the assessment and plan as stated above and agree with all of its relevant components. Radha Frey MD documented in this encounter [facility] 05-10-2022 Miscellaneous Notes Addended by: MARY HURST on: 05/10/2022 01:20 PM Modules accepted: Orders documented in this encounter [facility] 05-10-2022 History of Present illness Narrative 1. Exudative age-related macular degeneration, bilateral, with active choroidal neovascularization (HCC) Continue follow-up with Dr. Frey for injections in both eyes 2. Presbyopia Continue with OTC readers for now OK to try Lumify for mild hypermia Follow-up in 6 months to recheck refraction Mary Hurst, OD May 10, 2022 1:18 PM documented in this encounter [facility] 04-19-2022 Instructions Radha Frey MD, PhD - 04/19/2022 11:02 AM EDT Post-Injection Patient Information You had an injection into the eye today. Tearing and some redness are common after an eye injection. If the eye feels irritated, try to keep it closed; some patients find that a mild pain medicine such as acetaminophen helps. If tearing or pain persists the next day, please call. The redness may take some days to a week to resolve. If you notice increasing pain, redness or blurred vision, please call the office. Loss of central or peripheral vision should prompt a call to us. Please call if you have any questions or concerns. For Questions or an Appointment, please call: [phone] Visit us online at [email or web address]. documented in this encounter [facility] 04-19-2022 History of Present illness Narrative Patient has been receiving intravitreal injections for AMd both eyes for ~ 10 years Was well controlled on Eylea both eyes until recently left eye required more frequent administration. 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 I have seen and examined this patient. I have discussed the case and the management of this patient's care with the Resident/Fellow, if applicable. I also have reviewed and agree with the assessment and plan as stated above and agree with all of its relevant components. Radha Frey MD documented in this encounter [facility] 03-08-2022 Miscellaneous Notes Addended by: RADHA FREY on: 03/08/2022 11:21 AM Modules accepted: Orders documented in this encounter [facility] 03-08-2022 Instructions Radha Frey MD, PhD - 03/08/2022 9:04 AM EDT Post-Injection Patient Information You had an injection into the eye today. Tearing and some redness are common after an eye injection. If the eye feels irritated, try to keep it closed; some patients find that a mild pain medicine such as acetaminophen helps. If tearing or pain persists the next day, please call. The redness may take some days to a week to resolve. If you notice increasing pain, redness or blurred vision, please call the office. Loss of central or peripheral vision should prompt a call to us. Please call if you have any questions or concerns. For Questions or an Appointment, please call: [phone] Visit us online at [email or web address]. documented in this encounter [facility] 03-08-2022 History of Present illness Narrative Patient has been receiving intravitreal injections for AMd both eyes for ~ 10 years Was well controlled on Eylea both eyes until recently left eye required more frequent administration. 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 I have seen and examined this patient. I have discussed the case and the management of this patient's care with the Resident/Fellow, if applicable. I also have reviewed and agree with the assessment and plan as stated above and agree with all of its relevant components. Radha Frey MD documented [facility] this encounter [facility] Diagnosis Exudative age-related macular degeneration, bilateral, with active choroidal neovascularization (HCC) [facility] Diagnosis Exudative age-related macular degeneration, bilateral, with active choroidal neovascularization (HCC)- Primary [facility]byopia [facility] Exudative age-related macular degeneration, bilateral, with active choroidal neovascularization (HCC) [facility] Diagnosis Exudative age-related macular degeneration, bilateral, with active choroidal neovascularization (HCC) [facility] Diagnosis Exudative age-related macular degeneration, bilateral, with active choroidal neovascularization (HCC) [facility] Diagnosis Exudative age-related macular degeneration, bilateral, with active choroidal neovascularization (HCC) [facility] Diagnosis Exudative age-related macular degeneration, bilateral, with active choroidal neovascularization (HCC) [facility] Diagnosis Exudative age-related macular degeneration, bilateral, with active choroidal neovascularization (HCC) [facility] Diagnosis Exudative age-related macular degeneration, bilateral, with active choroidal neovascularization (HCC)- Primary [facility] Diagnosis Exudative age-related macular degeneration, bilateral, with active choroidal neovascularization (HCC) [facility] Diagnosis Exudative age-related macular degeneration, bilateral, with active choroidal neovascularization (HCC) documented in this encounter [facility] Summary Purpose Family History No Family History Records FoundNo Family History Records Found Advance Directives No Advanced Directives Records FoundNo Advanced Directives Records Found Medications Administered Section Active Administered Medications - up to 3 most recent administrations Medication Order MAR Action Action Date Dose Rate Site PHENYLephrine 2.5 % 1 Drop (AK-DILATE, GUZMAN-SYNEPHRINE) 1 Drop, BOTH EYES, DIRECTED, Starting on Sat03/08/22 at 0800, Until Sat03/08/22 at 1958, Administer for dilation PROTECT FROM LIGHT Given 03/08/2022 8:00 AM EDT 1 Drop proparacaine 0.5 % 1 Drop (ALCAINE) 1 Drop, BOTH EYES, DIRECTED, Starting on Sat03/08/22 at 0800, Until Sat03/08/22 at 1958, Administer for pneumo tonometry, tonopen tonometry, or pachymetry. In the event of a proparacaine shortage, administer tetracaine 0.5% ophthalmic drops 1 drop in the left eye as directed for pneumo tonometry, tonopen tonometry, or pachymetry Given 03/08/2022 8:00 AM EDT 1 Drop tropicamide 1 % 1 Drop (MYDRIACYL) 1 Drop, BOTH EYES, DIRECTED, Starting on Sat03/08/22 at 0800, Until Soha 03/08/22 at 1959, Administer for dilation Given 03/08/2022 8:00 AM EDT 1 Drop Inactive Administered Medications - up to 3 most recent administrations Medication Order MAR Action Action Date Dose Rate Site faricimab-svoa intravitreal injection 6 mg/0.05 mL (VABYSMO) 6 mg, ONE TIME INJECTION, 1 dose, Starting on Soha 03/08/22 at 1120, Until Soha 03/08/22 at 1120 Given 03/08/2022 11:20 AM EDT 6 mg Left faricimab-svoa intravitreal injection 6 mg/0.05 mL (VABYSMO) 6 mg, ONE TIME INJECTION, 1 dose, Starting on Sat03/08/22 at 1121, Until Sat03/08/22 at 1121 Given 03/08/2022 11:21 AM EDT 6 mg Right Inactive Administered Medications - up to 3 most recent administrations Medication Order MAR Action Action Date Dose Rate Site faricimab-svoa intravitreal injection 6 mg/0.05 mL (VABYSMO) 6 mg, ONE TIME INJECTION, 1 dose, Starting on Sat04/19/22 at 1103, Until Soha 04/19/22 at 1103 Given 04/19/2022 11:03 AM EDT 6 mg Right faricimab-svoa intravitreal injection 6 mg/0.05 mL (VABYSMO) 6 mg, ONE TIME INJECTION, 1 dose, Starting on Soha 04/19/22 at 1103, Until Soha 04/19/22 at 1103 Given 04/19/2022 11:03 AM EDT 6 mg Left Inactive Administered Medications - up to 3 most recent administrations Medication Order MAR Action Action Date Dose Rate Site faricimab-svoa intravitreal injection 6 mg/0.05 mL (VABYSMO) 6 mg, ONE TIME INJECTION, 1 dose, Starting on Sat05/18/22 at 0851, Until Sat05/18/22 at 0851 Given 05/18/2022 8:51 AM EST 6 mg Right faricimab-svoa intravitreal injection 6 mg/0.05 mL (VABYSMO) 6 mg, ONE TIME INJECTION, 1 dose, Starting on Sat05/18/22 at 0851, Until Sat05/18/22 at 0851 Given 05/18/2022 8:51 AM EST 6 mg Left Inactive Administered Medications - up to 3 most recent administrations Medication Order MAR Action Action Date Dose Rate Site aflibercept intravitreal injection 2 mg/0.05 mL (EYLEA) 2 mg, ONE TIME INJECTION, 1 dose, Starting on Soha 06/07/22 at 0950, Until Soha 06/07/22 at 0950 Given 06/07/2022 9:50 AM EST 2 mg Right aflibercept intravitreal injection 2 mg/0.05 mL (EYLEA) 2 mg, ONE TIME INJECTION, 1 dose, Starting on Sat06/07/22 at 0950, Until Sat06/07/22 at 0950 Given 06/07/2022 9:50 AM EST 2 mg Left Inactive Administered Medications - up to 3 most recent administrations Medication Order MAR Action Action Date Dose Rate Site faricimab-svoa intravitreal injection 6 mg/0.05 mL (VABYSMO) 6 mg, ONE TIME INJECTION, 1 dose, Starting on Sat06/28/22 at 0908, Until Sat06/28/22 at 0908 Given 06/28/2022 9:08 AM EST 6 mg Right faricimab-svoa intravitreal injection 6 mg/0.05 mL (VABYSMO) 6 mg, ONE TIME INJECTION, 1 dose, Starting on Sat06/28/22 at 0908, Until Soha 06/28/22 at 0908 Given 06/28/2022 9:08 AM EST 6 mg Left Inactive Administered Medications - up to 3 most recent administrations Medication Order MAR Action Action Date Dose Rate Site faricimab-svoa intravitreal injection 6 mg/0.05 mL (VABYSMO) 6 mg, ONE TIME INJECTION, 1 dose, Starting on Soha 07/26/22 at 0756, Until Soha 07/26/22 at 0756 Given 07/26/2022 7:56 AM EST 6 mg Left faricimab-svoa intravitreal injection 6 mg/0.05 mL (VABYSMO) 6 mg, ONE TIME INJECTION, 1 dose, Starting on Soha 07/26/22 at 0755, Until Soha 07/26/22 at 0755 Given 07/26/2022 7:55 AM EST 6 mg Right Active Administered Medications - up to 3 most recent administrations Medication Order MAR Action Action Date Dose Rate Site fluorescein-benoxinate 0.25-0.4 % 1 Drop (FLURESS) 1 Drop, BOTH EYES, DIRECTED, Starting on Soha 08/23/22 at 0900, Until Soha 08/23/22 at 2058, Administer for applanation tonometry. In the event of a Fluress shortage, administer Hermelinda-Fluor 1 drop into both eyes as directed for applanation tonometry, [facility] MED ORDERS Given 08/23/2022 9:00 AM EST 1 Drop PHENYLephrine 2.5 % 1 Drop (AK-DILATE, GUZMAN-SYNEPHRINE) 1 Drop, BOTH EYES, DIRECTED, Starting on Soha 08/23/22 at 0900, Until Soha 08/23/22 at 2058, Administer for dilation PROTECT FROM LIGHT, [facility] MED ORDERS Given 08/23/2022 9:00 AM EST 1 Drop proparacaine 0.5 % 1 Drop (ALCAINE) 1 Drop, BOTH EYES, DIRECTED, Starting on Soha 08/23/22 at 0900, Until Soha 08/23/22 at 2058, Administer for pneumo tonometry, tonopen tonometry, or pachymetry. In the event of a proparacaine shortage, administer tetracaine 0.5% ophthalmic drops 1 drop in both eyes as directed for pneumo tonometry, tonopen tonometry, or pachymetry, [facility] MED ORDERS Given 08/23/2022 9:00 AM EST 1 Drop tropicamide 1 % 1 Drop (MYDRIACYL) 1 Drop, BOTH EYES, DIRECTED, Starting on Soha 08/23/22 at 0900, Until Soha 08/23/22 at 2058, Administer for dilation, [facility] MED ORDERS Given 08/23/2022 9:00 AM EST 1 Drop Inactive Administered Medications - up to 3 most recent administrations Medication Order MAR Action Action Date Dose Rate Site faricimab-svoa intravitreal injection 6 mg/0.05 mL (VABYSMO) 6 mg, ONE TIME INJECTION, 1 dose, Starting on Soha 08/23/22 at 1003, Until Soha 08/23/22 at 1003 Given 08/23/2022 10:03 AM EST 6 mg Right faricimab-svoa intravitreal injection 6 mg/0.05 mL (VABYSMO) 6 mg, ONE TIME INJECTION, 1 dose, Starting on Soha 08/23/22 at 1003, Until Soha 08/23/22 at 1003 Given 08/23/2022 10:03 AM EST 6 mg Left Inactive Administered Medications - up to 3 most recent administrations Medication Order MAR Action Action Date Dose Rate Site faricimab-svoa intravitreal injection 6 mg/0.05 mL (VABYSMO) 6 mg, ONE TIME INJECTION, 1 dose, Starting on Soha 09/27/22 at 0825, Until Soha 09/27/22 at 0825 Given 09/27/2022 8:25 AM EDT 6 mg Right faricimab-svoa intravitreal injection 6 mg/0.05 mL (VABYSMO) 6 mg, ONE TIME INJECTION, 1 dose, Starting on Soha 09/27/22 at 0825, Until Soha 09/27/22 at 0825 Given 09/27/2022 8:25 AM EDT 6 mg Left Inactive Administered Medications - up to 3 most recent administrations Medication Order MAR Action Action Date Dose Rate Site faricimab-svoa intravitreal injection 6 mg/0.05 mL (VABYSMO) 6 mg, ONE TIME INJECTION, 1 dose, Starting on Soha 11/22/22 at 0824, Until Soha 11/22/22 at 0824 Given 11/22/2022 8:24 AM EDT 6 mg Left Inactive Administered Medications - up to 3 most recent administrations Medication Order MAR Action Action Date Dose Rate Site faricimab-svoa intravitreal injection 6 mg/0.05 mL (VABYSMO) 6 mg, ONE TIME INJECTION, 1 dose, Starting on Soha 01/24/23 at 0822, Until Soha 01/24/23 at 0822 Given 01/24/2023 8:22 AM EDT 6 mg Right faricimab-svoa intravitreal injection 6 mg/0.05 mL (VABYSMO) 6 mg, ONE TIME INJECTION, 1 dose, Starting on Soha 01/24/23 at 0823, Until Soha 01/24/23 at 0823 Given 01/24/2023 8:23 AM EDT 6 mg Left Inactive Administered Medications - up to 3 most recent administrations Medication Order MAR Action Action Date Dose Rate Site faricimab-svoa intravitreal injection 6 mg/0.05 mL (VABYSMO) 6 mg, ONE TIME INJECTION, 1 dose, Starting on Soha 02/21/23 at 0815, Until Soha 02/21/23 at 0815 Given 02/21/2023 8:15 AM EDT 6 mg Left Inactive Administered Medications - up to 3 most recent administrations Medication Order MAR Action Action Date Dose Rate Site faricimab-svoa intravitreal injection 6 mg/0.05 mL (VABYSMO) 6 mg, ONE TIME INJECTION, 1 dose, Starting on Soha 03/28/23 at 0823, Until Soha 03/28/23 at 0823 Given 03/28/2023 8:23 AM EDT 6 mg Right faricimab-svoa intravitreal injection 6 mg/0.05 mL (VABYSMO) 6 mg, ONE TIME INJECTION, 1 dose, Starting on Soha 03/28/23 at 0823, Until Soha 03/28/23 at 0823 Given 03/28/2023 8:23 AM EDT 6 mg Left fluorescein-benoxinate 0.25-0.4 % 1 Drop (FLURESS) 1 Drop, BOTH EYES, DIRECTED, Starting on Soha 03/28/23 at 0830, Until Soha 03/28/23 at 2028, Administer for applanation tonometry. In the event of a Fluress shortage, administer Hermelinda-Fluor 1 drop into both eyes as directed for applanation tonometry, [facility] MED ORDERS Given 03/28/2023 8:30 AM EDT 1 Drop PHENYLephrine 2.5 % 1 Drop (AK-DILATE, GUZMAN-SYNEPHRINE) 1 Drop, BOTH EYES, DIRECTED, Starting on Soha 03/28/23 at 0830, Until Soha 03/28/23 at 2028, Administer for dilation PROTECT FROM LIGHT, [facility] MED ORDERS Given 03/28/2023 8:30 AM EDT 1 Drop proparacaine 0.5 % 1 Drop (ALCAINE) 1 Drop, BOTH EYES, DIRECTED, Starting on Soha 03/28/23 at 0830, Until Soha 03/28/23 at 2028, Administer for pneumo tonometry, tonopen tonometry, or pachymetry. In the event of a proparacaine shortage, administer tetracaine 0.5% ophthalmic drops 1 drop in both eyes as directed for pneumo tonometry, tonopen tonometry, or pachymetry, [facility] MED ORDERS Given 03/28/2023 8:30 AM EDT 1 Drop tropicamide 1 % 1 Drop (MYDRIACYL) 1 Drop, BOTH EYES, DIRECTED, Starting on Soha 03/28/23 at 0830, Until Soha 03/28/23 at 2028, Administer for dilation, [facility] MED ORDERS Given 03/28/2023 8:30 AM EDT 1 Drop Additional Source Comments INFORMATION SOURCE (unrecogn ized section and content) DATE CREATED AUTHOR AUTHOR'S ORGANIZ ATION 08/30/2023 [facility] Source Comments (unrecognize d section and content) In the event this informatio n is protected by the Federal Confidentiality of Alcohol and Drug Abuse Patient Records regulations: The Federal rules restrict any use of the information to criminally investigate or prosecute any alcohol or drug abuse patient.[facility] the event this information is protected by the Federal Confidentiality of Alcohol and Drug Abuse Patient Records regulations: The Federal rules restrict any use of the information to criminally investigate or prosecute any alcohol or drug abuse patient.[facility] the event this information is protected by the Federal Confidentiality of Alcohol and Drug Abuse Patient Records regulations: The Federal rules restrict any use of the information to criminally investigate or prosecute any alcohol or drug abuse patient.[facility] the event this information is protected by the Federal Confidentiality of Alcohol and Drug Abuse Patient Records regulations: The Federal rules restrict any use of the information to criminally investigate or prosecute any alcohol or drug abuse patient.[facility] the event this information is protected by the Federal Confidentiality of Alcohol and Drug Abuse Patient Records regulations: The Federal rules restrict any use of the information to criminally investigate or prosecute any alcohol or drug abuse patient.[facility] the event this information is protected by the Federal Confidentiality of Alcohol and Drug Abuse Patient Records regulations: The Federal rules restrict any use of the information to criminally investigate or prosecute any alcohol or drug abuse patient.[facility] the event this information is protected by the Federal Confidentiality of Alcohol and Drug Abuse Patient Records regulations: The Federal rules restrict any use of the information to criminally investigate or prosecute any alcohol or drug abuse patient.[facility] the event this information is protected by the Federal Confidentiality of Alcohol and Drug Abuse Patient Records regulations: The Federal rules restrict any use of the information to criminally investigate or prosecute any alcohol or drug abuse patient.[facility] the event this information is protected by the Federal Confidentiality of Alcohol and Drug Abuse Patient Records regulations: The Federal rules restrict any use of the information to criminally investigate or prosecute any alcohol or drug abuse patient.[facility] the event this information is protected by the Federal Confidentiality of Alcohol and Drug Abuse Patient Records regulations: The Federal rules restrict any use of the information to criminally investigate or prosecute any alcohol or drug abuse patient.[facility] the event this information is protected by the Federal Confidentiality of Alcohol and Drug Abuse Patient Records regulations: The Federal rules restrict any use of the information to criminally investigate or prosecute any alcohol or drug abuse patient.[facility] the event this information is protected by the Federal Confidentiality of Alcohol and Drug Abuse Patient Records regulations: The Federal rules restrict any use of the information to criminally investigate or prosecute any alcohol or drug abuse patient.[facility] the event this information is protected by the Federal Confidentiality of Alcohol and Drug Abuse Patient Records regulations: The Federal rules restrict any use of the information to criminally investigate or prosecute any alcohol or drug abuse patient.[facility] the event this information is protected by the Federal Confidentiality of Alcohol and Drug Abuse Patient Records regulations: The Federal rules restrict any use of the information to criminally investigate or prosecute any alcohol or drug abuse patient.[facility] the event this information is protected by the Federal Confidentiality of Alcohol and Drug Abuse Patient Records regulations: The Federal rules restrict any use of the information to criminally investigate or prosecute any alcohol or drug abuse patient.[facility] Reason for Visit (unrecogniz ed section and content) Reason Comments 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 Reason Comments New glasses Dry Eye(s) Both Eyes Red Eye OU Blurred Vision Both Eyes Difficulty Reading Both Eyes Reason Comments Exudative Macular Degeneration Follow Up Reason Comments 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 Blurred Vision Left Eye Reason Comments Macular Degeneration Follow Up Exudative Both Eyes Reason Comments 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- here today for Vabysmo both eyes and dilated fundus exam Reason Comments Research [employer]ent study Reason Comments Exudative Macular Degeneration Follow Up Bilateral- here for Vabysmo both eyes today Pseudophakia Reason Comments Exudative Macular Degeneration Follow Up Here today for vabysmo both eyes Pseudophakia Reason Comments Exudative Macular Degeneration Follow Up Decreased Vision [facility] Teams (unrecognized sec tion and content) Polymer Chemist Relationship Specialty Start Date End Date Sarah Salazar MD [address] [place], [place] [id number] PCP - General Internal Medicine 04/23/22 Polymer Chemist Relationship Specialty Start Date End Date Sarah Salazar MD [address] [place], [place] [id number] PCP - General Internal Medicine 04/23/22 Polymer Chemist Relationship Specialty Start Date End Date Sarah Salazar MD [address] [place], [place] [id number] PCP - General Internal Medicine 04/23/22 Polymer Chemist Relationship Specialty Start Date End Date Sarah Salazar MD [address] [place] [address] PCP - General Internal Medicine 04/23/22 Polymer Chemist Relationship Specialty Start Date End Date Sarah Salazar MD [address] [place] [address] PCP - General Internal Medicine 04/23/22 Polymer Chemist Relationship Specialty Start Date End Date Radhika Beltran Chi [address] [place] [address] PCP - General Gerontology 09/27/22 Polymer Chemist Relationship Specialty Start Date End Date Radhika Beltran Chi [address] [place] [address] PCP - General Gerontology 09/27/22 Polymer Chemist Relationship Specialty Start Date End Date Radhika Beltran Chi [address] [place], [place] [id number] PCP - General Gerontology 09/27/22 Polymer Chemist Relationship Specialty Start Date End Date Radhika Beltran Chi [address] [place] [address] PCP - General Gerontology 09/27/22 Polymer Chemist Relationship Specialty Start Date End Date AmericaRadhika pierson Chi [address] [place] [address] PCP - General Gerontology 09/27/22 Polymer Chemist Relationship Specialty Start Date End Date AmericaRadhika pierson Chi [address] [place], [place] [phone] PCP - General Gerontology 09/27/22 Active Administered Medications - up to 3 most recent administrations Administered Medications (un recognized section and content) Inactive Administered Medications - up to 3 most recent administrations Medication Order MAR Action Action Date Dose Rate Site faricimab-svoa intravitreal injection 6 mg/0.05 mL (VABYSMO) 6 mg, ONCE, 1 dose, Starting on Soha 08/29/23 at 0918, Until Soha 08/29/23 at 0918 Given 08/29/2023 9:18 AM EST 6 mg Left faricimab-svoa intravitreal injection 6 mg/0.05 mL (VABYSMO) 6 mg, ONCE, 1 dose, Starting on Soha 08/29/23 at 0918, Until Soha 08/29/23 at 0918 Given 08/29/2023 9:18 AM EST 6 mg Right FOR RECORDS PERTAINING TO PATIENTS WHO ARE OR HAVE BEEN ENROLLED IN A CHEMICAL DEPENDENCY/SUBSTANCEABUSE PROGRAM, SOME INFORMATION MAY BE OMITTED. This clinical summary was aggregated from multiple sources. Caution should be exercised in using it in the provision of clinical care. This summary normalizes information from multiple sources, and as a consequence, information in this document may materially change the coding, format and clinical context of patient data. In addition, data may be omitted in some cases. CLINICAL DECISIONS SHOULD BE BASED ON THE PRIMARY CLINICAL RECORDS. [facility]. provides no warranty or guarantee of the accuracy or completeness of information in this document.
[2023-09-06 12:31] LABS: Vitamin D,25 Hydroxy 29.2 ng/mL
[2023-09-06 12:37] LABS: ALB/GLOB Ratio 1.3 RATIO (0.9-2.4); AST(SGOT) 18 U/L (15-37); Alanine Aminotransfer ALT/SGPT 17 U/L (13-56); Albumin, Serum 3.6 g/dL (3.2-5.0); Alkaline Phosphatase 55 U/L (45-117); Anion Gap 5 (5-15); BUN 11 mg/dL (7-18); BUN/Creat Ratio 14.3 RATIO (10-20); Calcium,Total 8.6 mg/dL (8.5-10.1); Chloride 108 mmol/L (98-107); Creatinine, Serum 0.77 mg/dL (0.55-1.02); EST Glomerular Filtration Rate 78 mL/min (>60); Est Glom Filt Rate - Afr Amer 94 mL/min (>60); Globulin 2.8 g/dL (2.2-4.2); Glucose 92 mg/dL (74-106); Potassium 3.4 mmol/L (3.5-5.1); Protein, Total 6.4 g/dL (6.4-8.2); Sodium Level 141 mmol/L (136-145); Thyroid Stim Hormone (TSH) 2.11 uIU/mL (0.358-3.74)
== END | disposition home or self-care (01) ==
LOC: POLAB3 10:58
PROVIDERS: PCP Family Medicine Geriatric Medicine; Visit Provider Family Medicine Geriatric Medicine
DX: R53.83 Other fatigue (principal); E55.9 Vitamin D deficiency, unspecified
CPT/HCPCS: 36415; 80053; 82306; 84443; 85025

== ENCOUNTER → 2023-09-16 | Outpatient (CLI) | payer MEDICARE, BC, SELFPAY ==
[2023-09-16 13:24] LABS: Anion Gap 6 (5-15); BUN 10 mg/dL (7-18); BUN/Creat Ratio 12.5 RATIO (10-20); Calcium,Total 8.9 mg/dL (8.5-10.1); Chloride 106 mmol/L (98-107); EST Glomerular Filtration Rate 74 mL/min (>60); Est Glom Filt Rate - Afr Amer 90 mL/min (>60); Glucose 95 mg/dL (74-106); Potassium 3.9 mmol/L (3.5-5.1); Sodium Level 141 mmol/L (136-145)
== END | disposition home or self-care (01) ==
LOC: POLAB3 11:59
PROVIDERS: PCP Family Medicine Geriatric Medicine; Visit Provider Family Medicine Geriatric Medicine
DX: R53.83 Other fatigue (principal)
CPT/HCPCS: 36415; 80048

== ENCOUNTER → 2024-02-11 | Outpatient (CLI) | payer MEDICARE, BC, SELFPAY ==
--- NOTE | 2024-02-11 13:00 | BI_ITS ---
MAMMOGRAPHY - BILATERAL SCREENING REASON FOR EXAM: Female, 79 years old. Routine annual screening examination. PERTINENT HISTORY: Non-contributory. TECHNIQUE: Digital bilateral breast john (3D mammographic acquisition) in the CC and MLO projections. 2-D mediolateral oblique (MLO) and craniocaudad (CC) views of both breasts were obtained. CAD: Full Field Digital Mammography with Computer Added Detection was performed. COMPARISON: Comparison is made with prior study October 17, 2022. FINDINGS: Breast Composition: There are scattered areas of fibroglandular density. There are no dominant masses or suspicious calcifications. No other significant abnormalities are identified. There has been no significant change since the prior study. BI/SCRN MAMM (CAD)W/JOHN BILAT IMPRESSION: Stable bilateral screening mammogram. Yearly follow-up mammogram recommended. (A) ASSESSMENT CATEGORY: BIRADS Category 1: Negative. A letter regarding these results will be sent to the patient by the facility within 30 days. Approximately 10% of breast cancers are not detected by mammography. A normal mammogram should not delay biopsy of a clinically suspicious abnormality. [id number] Electronically Signed: Deric Mtz MD at 15:08 EDT ,
--- NOTE | 2024-02-11 13:00 | BD_ITS ---
STUDY: DUAL ENERGY X-RAY ABSORPTIOMETRY / DXA REASON FOR EXAM: Female, 79 years old. Osteoarthritis TECHNIQUE: Bone Mineral Density (BMD) measurements of lumbar spine and bilateral hips were obtained. COMPARISON: None. FINDINGS: Lumbar Spine (L1-L4): g/cm2 (1.243) / T-score (1.8) / Z-score (4.3) Findings are suggestive of normal bone density with a low fracture risk. Left Femur Total: g/cm2 (0.874) / T-score (-0.6) / Z-score (1.3) Left Femoral Neck: g/cm2 (0.723) / T-score (-1.1) / Z-score (1.0) Right Femur Total: g/cm2 (0.899) / T-score (-0.4) / Z-score (1.5) Right Femoral Neck: g/cm2 (0.736) / T-score (-1.0) / Z-score (1.2) BD/Dexa Bone Density Study IMPRESSION: The patient is considered osteopenic as outlined below according to World Chiki Organization (WHO) criteria with a low fracture risk. Reference Information: The T-score is the number of standard deviations above or below the standard which is normal for young adults at their peak bone mineral density. The World Health Organization (WHO) interprets the T-scores as follows: Above -1 Normal bone density Between -1 and -2.5 Osteopenia Equal to / or below -2.5 Osteoporosis As a practical clinical guideline, osteopenia may be graded as follows: Mild -1 through -1.5 Moderate -1.6 through -2.0 Severe -2.1 through -2.4 The Z-score is the number of standard deviations above or below age-matched controls. A Z-score of less than -1.5 would be considered abnormal. References: 1. NIH Osteoporosis and Related Bone Diseases www osteo.org 2. International Society for Clinical Densitometry www iscd.org 3. National Osteoporosis Foundation www nof.org Electronically Signed: Deric Mtz MD at 8:18 EDT ,
== END | disposition home or self-care (01) ==
LOC: OPBD 12:46
PROVIDERS: PCP Family Medicine Geriatric Medicine; Referring Provider Registered Nurse; Visit Provider Registered Nurse
DX: Z12.31 Encounter for screening mammogram for malignant neoplasm of breast (principal); M81.0 Age-related osteoporosis without current pathological fracture
CPT/HCPCS: 77063; 77067; 77080

== ENCOUNTER → 2024-09-15 | Outpatient (CLI) | payer MEDICARE, BC, SELFPAY ==
[2024-09-15 16:30] LABS: Absolute Lymphocyte Count 1.79 X10^3/uL (0.83-4.51); Absolute Neutrophil Count 3.3 X10^3/uL (2.0-7.7); Basophil# 0.06 X10^3/uL; Basophil% 1.1 % (0-1); Eosinophil# 0.15 X10^3/uL; Eosinophils% 2.6 % (0-5); Hematocrit 39.6 % (37-47); Hemoglobin 13.9 g/dL (12.0-15.0); Lymphocyte # 1.79 X10^3/ul (0.83-4.51); Lymphocyte % 31.4 % (19-41); Mean Corp Hgb Conc 35.1 g/dL (32-36); Mean Corpuscular Hgb 32.3 pg (27.0-32.0); Mean Corpuscular Volume 91.9 fL (81-99); Mean Platelet Vol. 10.6 fl (6.2-12.0); Monocyte# 0.44 X10^3/uL; Monocyte% 7.7 % (0-10); NRBC Flagged by Analyzer 0 % (0-5); Neutrophil # 3.25 X10^3/uL (2.7-7.7); Platelet Count 189 K/mm3 (150-450); RBC Distribution Width CV 12.9 % (11.6-14.6); RBC Distribution Width SD 43.4 fl (35.1-43.9); Red Blood Count 4.31 M/mm3 (4.2-5.4); White Blood Count 5.7 K/mm3 (4.4-11.0)
[2024-09-15 20:19] LABS: ALB/GLOB Ratio 4.1 RATIO (0.9-2.4); AST(SGOT) 23 U/L (<=31); Alanine Aminotransfer ALT/SGPT 15 U/L (<=34); Albumin, Serum 3.5 g/dL (3.4-4.8); Alkaline Phosphatase 56 U/L (35-104); Anion Gap 9 (5-15); BUN 11 mg/dL (4-19); BUN/Creat Ratio 16.6 RATIO (10-20); Calcium,Total 8.7 mg/dL (7.6-11.0); Carbon Dioxide 25.7 mmol/L (21.0-32.0); Chloride 106 mmol/L (98-108); Creatinine, Serum 0.68 mg/dL (0.70-1.20); EST Glomerular Filtration Rate 90 (>60); Globulin 0.9 g/dL (2.2-4.2); Glucose 73 mg/dL (70-99); Potassium 3.9 mmol/L (3.3-5.1); Protein, Total 4.4 g/dL (5.9-8.4); Sodium Level 141 mmol/L (133-145); Total Bilirubin 0.58 mg/dL (0.00-1.30); Vitamin D,25 Hydroxy 43.1 ng/mL (30-100)
== END | disposition home or self-care (01) ==
LOC: LAB 15:40
PROVIDERS: PCP Family Medicine Geriatric Medicine; Referring Provider Family Medicine Geriatric Medicine; Visit Provider Family Medicine Geriatric Medicine
DX: E55.9 Vitamin D deficiency, unspecified (principal); R53.83 Other fatigue
CPT/HCPCS: 36415; 80053; 82306; 84443; 85025

== ENCOUNTER → 2025-02-16 | Outpatient (CLI) | payer MEDICARE, BC, SELFPAY ==
--- NOTE | 2025-02-16 15:45 | BI_ITS ---
EXAM: SCRN MAMM (CAD)W/JOHN BILAT DATE: 02/16/2025 CLINICAL HISTORY: F, Age 80 y/o , SCREEN FOR BREAST CANCER TECHNIQUE: SCRN MAMM (CAD)W/JOHN BILAT COMPARISON: Prior exam(s) were compared FINDINGS: TISSUE DENSITY: The breasts are heterogeneously dense, which may obscure small masses. Bilateral Breast Mammographic Findings: No suspicious masses, calcifications or other abnormalities are identified. BI/SCRN MAMM (CAD)W/JOHN BILAT IMPRESSION: No mammographic evidence of malignancy OVERALL FINAL ASSESSMENT BI-RADS 1: NEGATIVE. RECOMMENDATION: Routine annual follow-up in 1 Year A letter with findings and recommendations will be mailed to the patient. Reading Location: [id number]
== END | disposition home or self-care (01) ==
LOC: OPBI 15:34
PROVIDERS: PCP Family Medicine Geriatric Medicine; Referring Provider Nurse Practitioner Family; Visit Provider Nurse Practitioner Family
DX: Z12.31 Encounter for screening mammogram for malignant neoplasm of breast (principal)
CPT/HCPCS: 77063; 77067